=== PATIENT | male | born 1980 | race Caucasian/White ===

== ENCOUNTER 2024-06-07 08:28 | Emergency (ER) | payer OTHER, MEDICAID, SELFPAY ==
[2024-06-07 08:29] VITALS: BMI 26.4
--- NOTE | 2024-06-07 08:35 | XR_ITS ---
Examination: PA lateral chest 2 views TECHNIQUE: Upright PA lateral chest 2 views Exam date and time: June 07, 2024 0902 hours Comparison April 18, 2021 INDICATIONS: Coughing beginning one week ago. FINDINGS: Mild hyperexpansion Mild bibasilar bronchitis Normal heart size The osseous structures are intact IMPRESSION: Mild bibasilar bronchitis pattern
[2024-06-07 08:46] VITALS: BP 129/89; PULSE 98; RESP 18; TEMP 36.8; O2SAT 98
--- NOTE | 2024-06-07 09:29 | EDNOTE_ITS ---
Upper Respiratory Inf. RME/HPI General Chief Complaint: Flu Like Symptoms Stated Complaint: FEVER, COUGH X 3DAYS Time Seen by Provider: 06/07/24 08:29 Arrival date/time: 06/07/24 08:28 43-year-old male with medical history significant for seizure disorder presents to the emergency department complaints of fever, cough, congestion ongoing for the last 3 days. Limitations: no limitations Related Data Home Medications ?Medication ?Instructions ?Recorded ?Confirmed albuterol 90 mcg/actuation aerosol 90 mcg inhalation Q6H 09/23/23 03/16/24 inhaler aspirin 81 mg tablet 81 mg PO QDAY 09/23/23 03/16/24 atorvastatin 20 mg tablet 20 mg PO QDAY 09/23/23 03/16/24 baclofen 20 mg tablet 20 mg PO BID 09/23/23 03/16/24 celecoxib 100 mg capsule 100 mg PO BID 09/23/23 03/16/24 escitalopram oxalate 10 mg tablet 10 mg PO QDAY 09/23/23 03/16/24 fluticasone propionate 50 1 spray intranasal BID 09/23/23 03/16/24 mcg/actuation nasal spray,suspension gabapentin 600 mg tablet 600 mg PO BID 09/23/23 03/16/24 hydrocodone 10 mg-acetaminophen 1 tab PO Q6H PRN Pain 09/23/23 03/16/24 325 mg tablet hydroxyzine HCl 50 mg tablet 50 mg PO DAILY 09/23/23 03/16/24 levetiracetam 1,000 mg tablet 1,000 mg PO TID 09/23/23 03/16/24 loratadine 10 mg tablet 10 mg PO QDAY 09/23/23 03/16/24 melatonin 1 mg tablet 1 mg PO TID 09/23/23 03/16/24 pantoprazole 40 mg tablet,delayed 40 mg PO QDAY 09/23/23 03/16/24 release pentoxifylline 400 mg 400 mg PO BID 09/23/23 03/16/24 tablet,extended release trazodone 150 mg tablet 150 mg PO QDAY 09/23/23 03/16/24 Previous Rx's ?Medication ?Instructions ?Recorded ondansetron 4 mg disintegrating 4 mg PO Q8H PRN nausea and 08/19/23 tablet vomiting #10 tabs azithromycin 500 mg tablet See Rx Instructions PO .COMPLEX #6 06/07/24 tabs benzonatate 100 mg capsule 100 mg PO TID #14 caps 06/07/24 ibuprofen 600 mg tablet 600 mg PO Q6H #30 tabs 06/07/24 Allergies Allergy/AdvReac Type Severity Reaction Status Date / Time bee venom protein (honey bee) Allergy Verified 06/07/24 08:31 Review of Systems Review of Systems Systems Reviewed: All systems reviewed, normal except as documented Constitutional Constitutional: Reports system reviewed and no additional complaints, except as documented, Denies fever(s) and Denies headache(s) Eyes Eyes: Reports system reviewed and no additional complaints, except as documented and Denies blurry vision ENT Ears, Nose, Mouth, and Throat: Reports system reviewed and no additional complaints, except as documented, Denies headache(s), Denies nasal congestion and Denies nasal discharge Cardiovascular Cardiovascular: Reports system reviewed and no additional complaints, except as documented, Denies chest pain and Denies dyspnea Respiratory Respiratory: Reports system reviewed and no additional complaints, except as documented, Reports chest congestion, Reports cough and Denies dyspnea Gastrointestinal Gastrointestinal: Reports system reviewed and no additional complaints, except as documented and Denies abdominal pain Integumentary/Breasts Skin/Breast: Reports system reviewed and no additional complaints, except as documented and Denies rash Neurologic Neurologic: Reports system reviewed and no additional complaints, except as documented, Reports as per HPI and Denies headache(s) Past Medical History Past Medical History NEUROLOGIC: Positive Neurological Disorders (missing chromosome), Cerebrovascular Accident, Seizures and Epilepsy; Negative Transient Ischemic Attacks (TIA), Dementia, Alzheimer's Disease, Parkinson's Disease, Brain Tumor, Meningitis, Multiple Sclerosis, Cerebral Palsy, Amyotrophic Lateral Sclerosis (ALS/Courtney Gehrig's), Guillain-[place] Syndrome, Spina Bifida, Paralysis, Peripheral Neuropathy, Kitchen's Palsy, Subdural Hematoma, Migraine, Head Trauma, Spinal Cord Injury or Traumatic Brain Injury CARDIAC: Positive Cardiac Disorders (bradycardia), Atrial Fibrillation (unknown.) and Hypertension; Negative Myocardial Infarction, Cardiac Arrhythmia, Angina, Heart Murmur, Coronary Artery Disease, Atherosclerotic Heart Disease, Peripheral Vascular Disease, Hypercholesterolemia, Aneurysm, Congestive Heart Failure, Congenital Heart Disease, Valvular Heart Disease, Rheumatic Fever, Cardiomyopathy, Edema, Pericarditis, Cellulitis, Deep Vein Thrombosis, Hypotension or Varicose Veins RESPIRATORY: Positive Asthma and Bronchitis; Negative Chronic Obstructive Pulmonary Disease (COPD), Emphysema, Pneumonia, Pulmonary Fibrosis, Cystic Fibrosis, Tuberculosis, Pulmonary Embolism, Pulmonary Edema or Sleep Apnea GASTROINTESTINAL: Positive Gastrointestinal Disorders and Gastroesophageal Re flux Disease; Negative Hepatitis, Cirrhosis, Pancreatitis, Celiac Disease, Gall Bladder Disease, Gastrointestinal Bleed, Esophageal Varices, Garcia's Esophagus, Colitis, Ulcerative Colitis, Diverticulitis, Diverticulosis, Ulcer, Colorectal Cancer, Irritable Bowel, Crohn's Disease, Obstructive Bowel, Hiatal Hernia, Hemorrhoids or Obesity GENITOURINARY: Negative Genitourinary Disorders, Renal Disease, Kidney Stones, Polycystic Kidney Disease, Neurogenic Bladder, Inguinal Hernia, Dialysis, Prostate Cancer or Benign Prostatic Hyperplasia REPRODUCTIVE: Negative Testicular Cancer MUSCULOSKELETAL: Negative Musculoskeletal Disorders, Muscular Dystrophy, Myasthenia Gravis, Marfan's Syndrome, Bone Cancer, Arthritis, Rheumatoid Arthritis, Osteoporosis, Degenerative Disk Disease, Gout, Scoliosis, Carpal Tunnel Syndrome, Fibromyalgia, Fractures, Degenerative Joint Disease, Osteomyelitis or Poliovirus ENT: Positive Ear Infection; Negative Cataracts, Glaucoma, Blind, Retinal Detachment, Macular Degeneration, Deafness, Head Trauma or Eye Prosthesis ENDOCRINE: Negative Endocrine Disorders, Diabetes Mellitus Type 1, Diabetes Mellitus Type 2, Hypoglycemia, Marydel's Syndrome, [place]'s Disease, Hy perthyroidism, Hypothyroidism, Parathyroid Disease, Pituitary Disease, Syndrome of Inappropriate Antidiuretic Hormone (SIADH), Adrenal Disease or Graves' Disease HEMATOLOGIC: Negative Blood Disorders, Anemia, Leukemia, Hemophilia, Thalassemia, Sickle Cell Disease or Clotting Problems PSYCHO/SOCIAL: Positive Depression, Anxiety and Behavior Problems; Negative Psychiatric Problems, Schizophrenia, Recreational Drug Use, Bipolar Disorder, Self-Mutilation, Attention Deficit Disorder, Attention Deficit Hyperactivity Disorder, Depression, Post Traumatic Stress Disorder or Eating Disorder OTHER HISTORY: Negative Hospitalization, Autoimmune Disease, Down Syndrome, Autism, Developmental Delay (per caregiver.), Shingles, Falls, Blood Transfusions, Blood Transfusion Reaction, Anesthesia Reactions, Organ Transplant, Chemotherapy, Radiation Therapy, Hyperbaric Therapy, MRSA, VRSA, Vancomycin-Resistant Enterococci, Human Immunodeficiency Virus (HIV), Chicken Pox, Measles, Mumps, Rubella (Citizen [place] Measles), Pertussis, Clostridium Difficile, Cancer, Colorectal Cancer, Lung Cancer, Prostate Cancer or Testicular Cancer Family History FAMILY HISTORY: Negative Family Cardiac Disorders (caregiver does not know family history.) Surgical History SURGICAL: Negative Cardiac Surgery, Open Heart Surgery, Coronary Artery Bypass Graft, Valve Replacement, Vascular Surgery, Coronary Stent, Cardiac Catheterization, Pacemaker, Angiogram, Auto Implanted Cardiovert Defib, Carotid Endarterectomy, Endocrine Surgery, Thyroidectomy, Ear Surgery, Tympanostomy Tube, Eye Surgery, Nose Surgery, Oral Surgery, Tonsillectomy, Adenoidectomy, Cochlear Implant, Corneal Transplant, Throat Surgery, Abdominal Surgery, Tracheostomy, Gastric Bypass Surgery, Gastrostomy, Bowel Surgery, Nephrectomy, Transurethral Resection, Joint Replacement, Amputation, Open Reduction Internal Fixation, Arthroscopy, Neurologic Surgery, Brain Shunt, Vasectomy or Organ Transplant Social History SMOKING STATUS: Never smoker SUBSTANCE USE: former substance user (meth use 25 years ago) and marijuana ( uses when he has seizures ) ED Exam General Limitations: Present no limitations General appearance: Present alert and in no apparent distress Head Head exam: Present atraumatic Eye Eye exam: Present normal appearance, PERRL and EOMI ENT ENT exam: Present normal exam, normal oropharynx and mucous membranes moist Neck Neck exam: Present normal inspection, full ROM and trachea midline Chest Chest inspection: Present normal inspection and symmetric chest wall rise Respiratory Respiratory exam: Present normal lung sounds bilaterally; Absent respiratory distress, wheezes, stridor, accessory muscle use or prolonged expiratory phase Cardiovascular Cardiovascular exam: Present regular rate, normal rhythm and normal heart sounds; Absent bradycardia or tachycardia Abdominal Exam Abdominal exam: Present soft and normal bowel sounds; Absent distention, tenderness, guarding, rebound or rigidity Extremities Exam Extremities exam: Present normal inspection and full ROM Back Exam Back exam: Present normal inspection and full ROM Neurological Exam Neurological exam: Present alert, oriented X3 and CN II-XII intact Psychiatric Psychiatric exam: Present normal affect and normal mood Skin Skin exam: Present warm, dry, intact and normal color Course Quality Measures none Orders Category Date Time Status Bedside COVID-19 Antigen Test NOW Care 06/07/24 08:35 Active Bedside Influenza A&B Antigen Test NOW Care 06/07/24 08:35 Active XR chest 2V Stat Exams 06/07/24 08:35 Completed Vital Signs Vital signs: Vital Signs Temperature 98.2 F 06/07/24 08:46 Pulse Rate 98 06/07/24 08:46 Respiratory Rate 18 06/07/24 08:46 Blood Pressure 129/89 H 06/07/24 08:46 Pulse Oximetry (%) 98 06/07/24 08:46 Oxygen Delivery Method Room Air 06/07/24 08:46 O2 saturation 98% room air within normal limits Upper Respiratory Infection MDM Narrative MDM Narrative:: 43-year-old male with medical history significant for seizure disorder presents to the emergency department complaints of fever, cough, congestion ongoing for the last 3 days. On exam patient well-appearing patient does not appear ill or toxic patient does not appear in any acute distress Patient hemodynamically stable patient afebrile Patient checked for flu and COVID both which are negative Chest x-ray obtained consistent with bronchitis pattern Patient will treat with course of antibiotics and cough medicine Patient discharged home in no distress to follow-up with primary care doctor in the next 24 to 48 hours and for any worsening symptoms to return to the ER immediately Patient data External records reviewed:: [facility] previous records Clinical information provided by:: patient Social determinants that could affect healthcare access:: none Patient has the following chronic illnesses:: None How is presenting disease/condition affected by chronic disease/condition?: no chronic disease Evaluation data The following diagnostics were reviewed and interpreted by me:: lab results and radiology exam(s) Lab and/or radiology exams considered but not ordered:: Labs and radiology obtained Interpretation Summary: Reviewed by me Medications / Prescriptions Medications or Prescriptions considered but not ordered:: Given Medication administrations:: Given Consultations Consultation(s) initiated? (list below): No Diagnosis Upper Respiratory Differential Diagnosis: upper respiratory infection, otitis media, sinusitis and viral infection Most likely diagnosis given after review of the tests above:: URI Admission Indicated Admission indicated?: not indicated Admission Request Was there a request for admission?: No Disposition Plan Disposition Plan: Discharge Discharge Attestation Discharge Attestation: The patient and all family members were given an opportunity to ask questions and understood the discharge instructions. Discharge instructions specifically effects, indications for sooner follow up or return to the emergency department, and the expected course of current diagnosis. Patient condition: Stable Discharge Plan Plan Patient Disposition: HOME (Self Care) Disposition Comment: Stable Prescriptions/Referrals Prescriptions/Med Rec: New benzonatate 100 mg capsule 100 mg PO TID Qty: 14 0RF ibuprofen 600 mg tablet 600 mg PO Q6H Qty: 30 0RF azithromycin 500 mg tablet See Rx Instructions .ROUTE .COMPLEX Qty: 6 0RF Rx Instructions: take 500 mg today (day 1), then 250 mg for 4 days (days 2-5) No Action ondansetron 4 mg tablet,disintegrating 4 mg PO Q8H PRN (Reason: nausea and vomiting) Qty: 10 0RF gabapentin 600 mg Tablet 600 mg PO BID atorvastatin 20 mg Tablet 20 mg PO QDAY hydroxyzine HCl 50 mg Tablet 50 mg PO DAILY hydrocodone-acetaminophen 10-325 mg Tablet 1 tab PO Q6H PRN (Reason: Pain) pentoxifylline 400 mg Tablet Extended Release 400 mg PO BID Hold Instructions: Resume on 09/25/23. Hold until 09/24 Rx Instructions: must administer with a meal/food baclofen 20 mg Tablet 20 mg PO BID pantoprazole 40 mg Tablet,Delayed Release (Dr/Ec) 40 mg PO QDAY trazodone 150 mg Tablet 150 mg PO QDAY aspirin 81 mg Tablet 81 mg PO QDAY Hold Instructions: Resume on 09/25/23. Hold uuntil 09/24 albuterol 90 mcg/actuation Aerosol 90 mcg INHALATION Q6H Rx Instructions: 2 pufffs every 6 hours celecoxib 100 mg Capsule 100 mg PO BID fluticasone propionate 50 mcg/actuation [place],Suspension 1 spray INTRANASAL BID Rx Instructions: administer into each nostril loratadine 10 mg Tablet 10 mg PO QDAY escitalopram oxalate 10 mg Tablet 10 mg PO QDAY melatonin 1 mg Tablet 1 mg PO TID levetiracetam 1,000 mg Tablet 1,000 mg PO TID Referrals: Dave Mcneil MD [Primary Care Provider] - In 1 week Problem List Clinical Impression: Bronchitis Patient/Caregiver Discharge Instructions Education Materials: ED Upper Resp Infec Abx Tx Additional Instructions: Please follow up with your primary care doctor in the next 24-48hrs for any worsening symptoms return here immediately Print Language: Ni[place] Stand Alone Forms: Maddy Award Info., Work/School Release, Patient Portal Info Letter PA/REGISTERED RADIOGRAPHER Supervising Physician PA/REGISTERED RADIOGRAPHER Supervising Physician: Dr. Alejo
== END 2024-06-07 10:44 | disposition home or self-care (01) ==
PROVIDERS: Emergency Provider Emergency Medicine; PCP Family Medicine
DX: J40 Bronchitis, not specified as acute or chronic (principal)
CPT/HCPCS: 71046; 87400; 87811; 99283

== ENCOUNTER 2024-06-22 07:48 | Outpatient (AMB) | payer OTHER, MEDICAID, SELFPAY ==
[2024-06-22 08:04] VITALS: BP 148/81; PULSE 83; RESP 18; TEMP 36.4; O2SAT 97; BMI 25.5
--- NOTE | 2024-06-22 08:04 | ORTHONT_ITS ---
Vital signs 06/22/24 08:04 Height 1.91 m Height Method Stated Weight 93.157 kg Weight Measurement Method Standing Scale BMI 25.5 BP 148/81 H Blood Pressure Source Automatic Cuff Blood Pressure Location Left Upper Arm Position Sitting Respiration 18 Pulse 83 Pulse Source Monitor Temp 97.6 F Temp Source Temporal Artery Scan Pulse Oximetry (%) 97 Oxygen Delivery Method Room Air Med/Allergies Allergies & Medications Allergies bee venom protein (honey bee) Allergy (Verified 06/22/24 08:05) Medication Reconciliation ondansetron 4 mg disintegrating tablet 4 mg PO Q8H PRN nausea and vomiting #10 tabs 08/19/23 [Rx Confirmed 06/22/24] albuterol 90 mcg/actuation aerosol inhaler 90 mcg inhalation Q6H 09/23/23 [History Confirmed 06/22/24] aspirin 81 mg tablet 81 mg PO QDAY 09/23/23 [History Confirmed 06/22/24] atorvastatin 20 mg tablet 20 mg PO QDAY 09/23/23 [History Confirmed 06/22/24] baclofen 20 mg tablet 20 mg PO BID 09/23/23 [History Confirmed 06/22/24] celecoxib 100 mg capsule 100 mg PO BID 09/23/23 [History Confirmed 06/22/24] escitalopram oxalate 10 mg tablet 10 mg PO QDAY 09/23/23 [History Confirmed 06/22/24] fluticasone propionate 50 mcg/actuation nasal spray,suspension 1 spray intranasal BID 09/23/23 [History Confirmed 06/22/24] gabapentin 600 mg tablet 600 mg PO BID 09/23/23 [History Confirmed 06/22/24] hydrocodone 10 mg-acetaminophen 325 mg tablet 1 tab PO Q6H PRN Pain 09/23/23 [History Confirmed 06/22/24] hydroxyzine HCl 50 mg tablet 50 mg PO DAILY 09/23/23 [History Confirmed 06/22/24] levetiracetam 1,000 mg tablet 1,000 mg PO TID 09/23/23 [History Confirmed 1 ] loratadine 10 mg tablet 10 mg PO QDAY 09/23/23 [History Confirmed 06/22/24] melatonin 1 mg tablet 1 mg PO TID 09/23/23 [History Confirmed 06/22/24] pantoprazole 40 mg tablet,delayed release 40 mg PO QDAY 09/23/23 [History Confirmed 06/22/24] pentoxifylline 400 mg tablet,extended release 400 mg PO BID 09/23/23 [History Confirmed 06/22/24] trazodone 150 mg tablet 150 mg PO QDAY 09/23/23 [History Confirmed 06/22/24] azithromycin 500 mg tablet See Rx Instructions PO .COMPLEX #6 tabs 06/07/24 [Rx Confirmed 06/22/24] benzonatate 100 mg capsule 100 mg PO TID #14 caps 06/07/24 [Rx Confirmed 1 ] ibuprofen 600 mg tablet 600 mg PO Q6H #30 tabs 06/07/24 [Rx Confirmed 06/22/24] Exam Exam Patient is in no acute distress and is cooperative with the examination today. Breathing is nonlabored. In no respiratory distress. Bilateral extremities were evaluated and demonstrates sensation intact to light touch. Palpable pedal pulses are present. No significant edema is present. Bilateral hips were examined. The patient has no pain with log roll of the hips. Internal rotation to 30 degrees and external rotation to 30 degrees is painless. Negative FADIR. The left knee was examined. The left knee is in varus alignment. Range of motion from 0-115 degrees. Knee is stable to varus and valgus as well as AP translation with <5mm. Patient has a negative McMurrays. There is no pain with patellofemoral compression and no crepitus noted. The knee is tender to palpation medially. The right knee was also examined. The right knee is in varus alignment. Range of motion from 0-120 degrees. Knee is stable to varus and valgus as well as AP translation with <5mm. Patient has a negative McMurrays. There is no pain with patellofemoral compression and no crepitus noted. The knee is tender to palpation medially. Assessment and Plan Problem List (1) Arthritis of both knees: Status: Acute (2) Bilateral knee pain: Status: Acute Plan 43-year-old male with bilateral knee osteoarthritis moderate severity. We discussed nonoperative treatment options. He did well with cortisone injections would like a new one today. He would like both knees done Recommend knee cortisone injections as patient would like to proceed with conservative treatment at this time. The risks and benefits of the procedure were reviewed with the patient and patient gave verbal consent to continue with the procedure. Procedure: performed by Dr. Linares Using sterile technique the Bilateral knees were thoroughly prepped with alcohol, and approximately 1 cc of Kenalog 40 mg/mL and 4 cc of 1% lidocaine was injected into each knee without resistance into the medial tibial femoral joint space. The patient tolerated the procedure. Office Procedures GNS Level of Care Nursing/Assessment Patient Status: Established Patient Nursing Assessment/Reassesment: Medication Reconciliation, Update PMH in EMR and Vital Signs Coordination of Care: Complex Care and Chronic Disease 1-5, Education Complex Pt/Fam, Consent,records obtained, informed consent, 1 Ins Authorization, Results/Orders obtained and Staff clarify orders Established Patient Charge Established Patient Point Assignment: 110 Established Patient Point Charge: EP Level 3 (80-115) Surgical Proc/IM SQ injection Major Surgical Procedure: Yes (BILATERAL KNEE INJECTION) Medication Given Medication Given Medication Given: Yes Documented Dose Given: 8 Route: Infiitration Medication Given Medication Given Medication Given: Yes Documented Dose Given: 2 Route: Infiitration Office Meds Xylocaine 10 mg/mL (1 %) injection solution Performing Provider: Ryland Linares MD Performing Location: [facility] Administered by: Ryland Linares MD on 06/22/24 08:26 Dose Route Admin Location Dispensed Lot Number Expiration Date [facility] Exploration Manager 40 mL Infiltration 40 mL [id number] 01/19/27 76311-999-39 [facility] triamcinolone acetonide 40 mg/mL suspension for injection Performing Provider: Ryland Linares MD Performing Location: [facility] Administered by: Ryland Linares MD on 06/22/24 08:26 Dose Route Admin Location Dispensed Lot Number Expiration Date [facility] Exploration Manager 80 mg Infiltration 2 mL [id number] 11/19/25 6512-9173-86 [employer]EV[employer] PARENTER[employer] MA Intake Visit Data Collection New Patient or Established: Established Patient (seen at [facility] within 3 years) Reason for Visit:: 3 MONTH bilateral KNEE INJ F/U Seen by Clinical Staff ONLY (RN/MA): No Price Lister Required: No PCP or OBGYN visit in last 3 months: Yes Hx Now: No Do You Feel Safe at Home: Yes Authorities Contacted: N/A Questionairres Past Medical History Past Medical History Have you ever been diagnosed with any of the following: Neurological Problems Cerebrovascular Accident (CVA): Yes Transient Ischemic Attacks (TIA): No Dementia: No Alzheimer's Disease: No Parkinson's Disease: No Brain Tumor: No Meningitis: No Seizures: Yes Epilepsy: Yes Multiple Sclerosis: No Cerebral Palsy: No Amyotrophic Lateral Sclerosis (ALS/Courtney Gehrig's): No Guillain-Orange Syndrome: No Spina Bifida: No Paralysis: No Peripheral Neuropathy: No Kitchen's Palsy: No Subdural Hematoma: No Migraine: No Head Trauma: No Spinal Cord Injury: No Traumatic Brain Injury: No Cardiology Problems Myocardial Infarction: No Cardiac Arrhythmia: No Atrial Fibrillation: Yes (unknown.) Angina: No Heart Murmur: No Coronary Artery Disease: No Atherosclerotic Heart Disease: No Peripheral Vascular Disease: No Hypercholesterolemia: No Aneurysm: No Congestive Heart Failure: No Congenital Heart Disease: No Valvular Heart Disease: No Rheumatic Fever: No Cardiomyopathy: No Edema: No Pericarditis: No Cellulitis: No Deep Vein Thrombosis: No Hypertension: Yes Hypotension: No Varicose Veins: No Respiratory Problems Chronic Obstructive Pulmonary Disease (COPD): No Asthma: Yes Bronchitis: Yes Emphysema: No Pneumonia: No Pulmonary Fibrosis: No Tuberculosis: No Pulmonary Embolism: No Pulmonary Edema: No Sleep Apnea: No Stomache/Intestinal Problems Hepatitis: No Cirrhosis: No Pancreatitis: No Celiac Disease: No Gall Bladder Disease: No Gastrointestinal Bleed: No Esophageal Varices: No Garcia's Esophagus: No Colitis: No Ulcerative Colitis: No Diverticulitis: No Diverticulosis: No Ulcer: No Colorectal Cancer: No Irritable Bowel: No Crohn's Disease: No Obstructive Bowel: No Hiatal Hernia: No Hemorrhoids: No Gastroesophageal Reflux Disease: Yes Obesity: No Genital/Urinary Problems Renal Disease: No Kidney Stones: No Polycystic Kidney Disease: No Neurogenic Bladder: No Inguinal Hernia: No Dialysis: No Prostate Cancer: No Benign Prostatic Hyperplasia: No Reproductive Problems Testicular Cancer: No Musculoskeletal Problems Muscular Dystrophy: No Myasthenia Gravis: No Marfan's Syndrome: No Bone Cancer: No Arthritis: No Rheumatoid Arthritis: No Osteoporosis: No Degenerative Disk Disease: No Gout: No Scoliosis: No Carpal Tunnel Syndrome: No Fibromyalgia: No Fractures: No Degenerative Joint Disease: No Osteomyelitis: No Poliovirus: No Head,Eye,Nose,Throat Problems Cataracts: No Glaucoma: No Blind: No Retinal Detachment: No Macular Degeneration: No Chronic Ear Infections: Yes Deafness: No Eye Prosthesis: No Endocrine Problems Diabetes Mellitus Type 1: No Diabetes Mellitus Type 2: No Hypoglycemia: No [place]'s Syndrome: No Juan's Disease: No Hyperthyroidism: No Hypothyroidism: No Parathyroid Disease: No Pituitary Disease: No Syndrome of Inappropriate Antidiuretic Hormone: No Adrenal Disease: No Graves' Disease: No Blood Problems Anemia: No Leukemia: No Hemophilia: No Thalassemia: No Sickle Cell Disease: No Clotting Problems: No Psychologic Problems Schizophrenia: No Recreational Drug Use: No Bipolar Disorder: No Depression: Yes Anxiety: Yes Behavior Problems: Yes Self-Mutilation: No Attention Deficit Disorder: No Attention Deficit Hyperactivity Disorder: No Depression: No Post Traumatic Stress Disorder: No Eating Disorder: No Other Problems Hospitalization: No Down Syndrome: No Autism: No Developmental Delay: No (per caregiver.) Shingles: No Falls: No Blood Transfusions: No Blood Transfusion Reaction: No Anesthesia Reactions: No Organ Transplant: No Chemotherapy: No Radiation Therapy: No Hyperbaric Therapy: No MRSA: No VRSA: No Vancomycin-Resistant Enterococci: No Human Immunodeficiency Virus (HIV): No Chicken Pox: No Measles: No Mumps: No Rubella (Dutch Measles): No Pertussis: No Clostridium Difficile: No Cancer: No Lung Cancer: No Surgical History Carotid Endarterectomy: No Coronary Artery Bypass Graft: No Valve Replacement: No Pacemaker: No Thyroidectomy: No Subjective Visit Visit for: follow up visit, knee and injections Immunization / Flu Flu Vaccine in the Last 12 Months: No Flu Vaccine Exclusion Criteria: No Exclusion Criteria History of Present Illness Chief complaint: bilateral knee pain Rufino is a pleasant 42-year-old male with bilateral osteoarthritis versus rheumatoid arthritis. 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 He reports continued bilateral knee pain. He got cortisone injections 3 months ago and lasted for 3 months. He would like repeat injections today. Pain Pain level (0-10): 8 Pain duration: ALL DAY Pain location: inside (medial) Pain quality: sharp and aching Pain timing: night and increases with activity Associated signs & symptoms: weakness Ambulatory data Ambulatory device: none Treatments Improvement with previous injections: No Improvement with PT: No Improvement with NSAIDS: no Review of Systems Review of Systems: All systems negative unless otherwise noted in HPI.
== END 2024-06-22 08:19 | disposition home or self-care (01) ==
LOC: HODSRG 07:48
PROVIDERS: Supervising Provider Orthopaedic Surgery Adult Reconstructive Orthopaedic Surgery; Visit Provider Orthopaedic Surgery Adult Reconstructive Orthopaedic Surgery
DX: M17.0 Bilateral primary osteoarthritis of knee (principal); M25.561 Pain in right knee; M25.562 Pain in left knee; I10 Essential (primary) hypertension; K21.9 Gastro-esophageal reflux disease without esophagitis; Z86.73 Personal history of transient ischemic attack (TIA), and cerebral infarction without residual deficits
CPT/HCPCS: 20610; 99213; J3301; J3490; G0463

== ENCOUNTER 2024-09-28 11:14 | Emergency (ER) | payer OTHER, MEDICAID, SELFPAY ==
[2024-09-28 11:15] VITALS: BMI 27.0
--- NOTE | 2024-09-28 11:45 | XR_ITS ---
EXAMINATION: Ankle, left 3 views . Technique: Ankle AP, oblique, lateral 3 views Date and time of exam: September 28, 2024 1115 hrs. Indications: Patient fell one week TO THE ANKLE, ANKLE PAIN. Findings: No ankle fracture or dislocation No opaque foreign body Impression: No fracture or dislocation
--- NOTE | 2024-09-28 11:45 | EDNOTE_ITS ---
<Statement entered by Francine Mason MD - 09/28/24 16:04> As co-signing physician, I was present and available for consult prn. I concur with the plan and care as documented by the midlevel provider. Lower Extremity Injury RME/HPI General Chief Complaint: Fall Stated Complaint: GLF 4 DAYS AGO; L ANKLE & L KNEE PAIN Time Seen by Provider: 09/28/24 11:35 Arrival date/time: 09/28/24 11:14 44-year-old male presents with concerns for left knee pain left ankle and foot pain after twisting injury 4 days ago Limitations: no limitations Related Data Home Medications ?Medication ?Instructions ?Recorded ?Confirmed albuterol 90 mcg/actuation aerosol 90 mcg inhalation Q 6H 09/23/23 06/22/24 inhaler aspirin 81 mg tablet 81 mg PO QDAY 09/23/2306/22 Held on 09/23/23. Instructions: Resume on 09/25/23. Hold uuntil 09/24 atorvastatin 20 mg tablet 20 mg PO QDAY 09/23/2306/22 baclofen 20 mg tablet 20 mg PO BID 09/23/23 celecoxib 100 mg capsule 100 mg PO BID 09/23/2306/22 escitalopram oxalate 10 mg tablet 10 mg PO QDAY 06/22/24 fluticasone propionate 50 1 spray intranasal BID 09/2206/22/24 mcg/actuation nasal spray,suspension gabapentin 600 mg tablet 600 mg PO BID 09/23/2306/22 hydrocodone 10 mg-acetaminophen 1 tab PO Q6H PRN Pain 09/23/23 06/22/24 325 mg tablet hydroxyzine HCl 50 mg tablet 50 mg PO DAILY 09/23/23 1 levetiracetam 1,000 mg tablet 1,000 mg PO TID 09/23/23 06/22/24 loratadine 10 mg tablet 10 mg PO QDAY 09/23/2306/22 melatonin 1 mg tablet 1 mg PO TID 09/23/23 4 pantoprazole 40 mg tablet,delayed 40 mg PO QDAY 06/22/24 release pentoxifylline 400 mg 400 mg PO BID 09/23/2306/22 tablet,extended release Held on 09/23/23. Instructions: Resume on 09/25/23. Hold until 09/24 trazodone 150 mg tablet 150 mg PO QDAY 09/23/2305/25 Previous Rx's ?Medication ?Instructions ?Recorded ondansetron 4 mg disintegrating 4 mg PO Q8H PRN nausea and 08/19/23 tablet vomiting #10 tabs azithromycin 500 mg tablet See Rx Instructions PO .COM PLEX #6 06/07/24 tabs benzonatate 100 mg capsule 100 mg PO TID #14 caps 05/23 12/14 ibuprofen 600 mg tablet 600 mg PO Q6H #30 tabs 06/07 Allergies Allergy/AdvReac Type Severity Reaction Status Date / Time bee venom protein (honey bee) Allergy Severe Anaphylaxis Verified 09/28/24 11:19 venom-wasp Allergy Severe Anaphylaxis Verified 09/28/24 11:19 Review of Systems Review of Systems Systems Reviewed: All systems reviewed, normal except as documented Constitutional Constitutional: Reports system reviewed and no additional complaints, except as documented, Denies fever(s) and Denies headache(s) Eyes Eyes: Reports system reviewed and no additional complaints, except as documented and Denies blurry vision ENT Ears, Nose, Mouth, and Throat: Reports system reviewed and no additional complaints, except as documented, Denies headache(s), Denies nasal congestion and Denies nasal discharge Cardiovascular Cardiovascular: Reports system reviewed and no additional complaints, except as documented, Denies chest pain and Denies dyspnea Respiratory Respiratory: Reports system reviewed and no additional complaints, except as documented, Denies chest congestion, Denies cough and Denies dyspnea Gastrointestinal Gastrointestinal: Reports system reviewed and no additional complaints, except as documented and Denies abdominal pain Musculoskeletal Musculoskeletal: Reports system reviewed and no additional complaints, except as documented, Reports arthralgias (Pain left foot ankle and knee), Denies deformity and Reports stiffness Integumentary/Breasts Skin/Breast: Reports system reviewed and no additional complaints, except as documented and Denies rash Neurologic Neurologic: Reports system reviewed and no additional complaints, except as documented, Reports as per HPI and Denies headache(s) Past Medical History Past Medical History NEUROLOGIC: Positive Neurological Disorders (missing chromosome), Cerebrovascular Accident, Seizures and Epilepsy; Negative Transient Ischemic Attacks (TIA), Dementia, Alzheimer's Disease, Parkinson's Disease, Brain Tumor, Meningitis, Multiple Sclerosis, Cerebral Palsy, Amyotrophic Lateral Sclerosis (ALS/Courtney Gehrig's), Guillain-[place] Syndrome, Spina Bifida, Paralysis, Peripheral Neuropathy, Kitchen's Palsy, Subdural Hematoma, Migraine, Head Trauma, Spinal Cord Injury or Traumatic Brain Injury CARDIAC: Positive Cardiac Disorders (bradycardia), Atrial Fibrillation and Hypertension; Negative Myocardial Infarction, Cardiac Arrhythmia, Angina, Heart Murmur, Coronary Artery Disease, Atherosclerotic Heart Disease, Peripheral Vascular Disease, Hypercholesterolemia, Aneurysm, Congestive Heart Failure, Congenital Heart Disease, Valvular Heart Disease, Rheumatic Fever, Cardiomyopathy, Edema, Pericarditis, Cellulitis, Deep Vein Thrombosis, Hypotension or Varicose Veins RESPIRATORY: Positive Asthma and Bronchitis; Negative Chronic Obstructive Pulmonary Disease (COPD), Emphysema, Pneumonia, Pulmonary Fibrosis, Cystic Fibrosis, Tuberculosis, Pulmonary Embolism, Pulmonary Edema or Sleep Apnea GASTROINTESTINAL: Positive Gastrointestinal Disorders and Gastroesophageal Reflux Disease; Negative Hepatitis, Cirrhosis, Pancreatitis, Celiac Disease, Gall Bladder Disease, Gastrointestinal Bleed, Esophageal Varices, Garcia's Esophagus, Colitis, Ulcerative Colitis, Diverticulitis, Diverticulosis, Ulcer, Colorectal Cancer, Irritable Bowel, Crohn's Disease, Obstructive Bowel, Hiatal Hernia, Hemorrhoids or Obesity GENITOURINARY: Negative Genitourinary Disorders, Renal Disease, Kidney Stones, Polycystic Kidney Disease, Neurogenic Bladder, Inguinal Hernia, Dialysis, Prostate Cancer or Benign Prostatic Hyperplasia REPRODUCTIVE: Negative Testicular Cancer MUSCULOSKELETAL: Negative Musculoskeletal Disorders, Muscular Dystrophy, Myasthenia Gravis, Marfan's Syndrome, Bone Cancer, Arthritis, Rheumatoid Arthritis, Osteoporosis, Degenerative Disk Disease, Gout, Scoliosis, Carpal Tunnel Syndrome, Fibromyalgia, Fractures, Degenerative Joint Disease, Osteomyel itis or Poliovirus ENT: Positive Ear Infection; Negative Cataracts, Glaucoma, Blind, Retinal Detachment, Macular Degeneration, Deafness, Head Trauma or Eye Prosthesis ENDOCRINE: Negative Endocrine Disorders, Diabetes Mellitus Type 1, Diabetes Mellitus Type 2, Hypoglycemia, Waller's Syndrome, Debary's Disease, Hyperthyroidism, Hypothyroidism, Parathyroid Disease, Pituitary Disease, Syndrome of Inappropriate Antidiuretic Hormone (SIADH), Adrenal Disease or Graves' Disease HEMATOLOGIC: Negative Blood Disorders, Anemia, Leukemia, Hemophilia, Thalassemia, Sickle Cell Disease or Clotting Problems PSYCHO/SOCIAL: Positive Depression, Anxiety and Behavior Problems; Negative Psychiatric Problems, Schizophrenia, Recreational Drug Use, Bipolar Disorder, Self-Mutilation, Attention Deficit Disorder, Attention Deficit Hyperactivity Disorder, Depression, Post Traumatic Stress Disorder or Eating Disorder OTHER HISTORY: Negative Hospitalization, Autoimmune Disease, Down Syndrome, Autism, Developmental Delay, Shingles, Falls, Blood Transfusions, Blood Transfusion Reaction, Anesthesia Reactions, Organ Transplant, Chemotherapy, Radiation Therapy, Hyperbaric Therapy, MRSA, VRSA, Vancomycin-Resistant Enterococci, Human Immunodeficiency Virus (HIV), Chicken Pox, Measles, Mumps, Rubella (Sami Measles), Pertussis, Clostridium Difficile, Cancer, Colorectal Cancer, Lung Cancer, Prostate Cancer or Testicular Cancer Family History FAMILY HISTORY: Negative Family Cardiac Disorders (caregiver does not know family history.) Surgical History SURGICAL: Negative Cardiac Surgery, Open Heart Surgery, Coronary Artery Bypass Graft, Valve Replacement, Vascular Surgery, Coronary Stent, Cardiac Catheterization, Pacemaker, Angiogram, Auto Implanted Cardiovert Defib, Carotid Endarterectomy, Endocrine Surgery, Thyroidectomy, Ear Surgery, Tympanostomy Tube, Eye Surgery, Nose Surgery, Oral Surgery, Tonsillectomy, Adenoidectomy, Cochlear Implant, Corneal Transplant, Throat Surgery, Abdominal Surgery, Tracheostomy, Gastric Bypass Surgery, Gastrostomy, Bowel Surgery, Nephrectomy, Transurethral Resection, Joint Replacement, Amputation, Open Reduction Internal Fixation, Arthroscopy, Neurologic Surgery, Brain Shunt, Vasectomy or Organ Transplant Social History SMOKING STATUS: Never smoker SUBSTANCE USE: former substance user (meth use 25 years ago) and marijuana ( uses when he has seizures ) ED Exam General Limitations: Present no limitations General appearance: Present alert and in no apparent distress Head Head exam: Present atraumatic, normocephalic and normal inspection Eye Eye exam: Present normal appearance, PERRL and EOMI; Absent conjunctival injection ENT ENT exam: Present normal exam, normal oropharynx and mucous membranes moist Neck Neck exam: Present normal inspection, full ROM and trachea midline Chest Chest inspection: Present normal inspection and symmetric chest wall rise Respiratory Respiratory exam: Present normal lung sounds bilaterally Cardiovascular Cardiovascular exam: Present regular rate, normal rhythm and normal heart sounds Abdominal Exam Abdominal exam: Present soft and normal bowel sounds Extremities Exam Extremities exam: Present full ROM, tenderness and normal capillary refill; Absent pedal edema, joint swelling or calf tenderness Back Exam Back exam: Present normal inspection and full ROM Neurological Exam Neurological exam: Present alert, oriented X3 and CN II-XII intact Psychiatric Psychiatric exam: Present normal affect and normal mood Skin Skin exam: Present warm, dry, intact and normal color Course Quality Measures none Orders Category Date Time Status XR ankle comp LT min 3V Stat Exams 09/28/24 11:45 Completed XR foot comp LT min 3V Stat Exams 09/28/24 11:45 Completed XR knee LT 3V Stat Exams 09/28/24 11:45 Completed Vital Signs Vital signs: Vital Signs Temperature 98.2 F 09/28/24 11:51 Pulse Rate 82 09/28/24 11:51 Respiratory Rate 18 09/28/24 11:51 Blood Pressure 119/82 09/28/24 11:51 Pulse Oximetry (%) 97 09/28/24 11:51 Oxygen Delivery Method Room Air 09/28/24 11:51 O2 saturation 98% room air with normal limits Extremity Injury, Lower MDM Narrative MDM Narrative:: 44-year-old male presents with concerns for left knee pain left ankle and foot pain after twisting injury 4 days ago On exam patient well-appearing patient does not appear ill or toxic patient is ambulatory Imaging of the left foot knee and ankle obtained Patient discharged home in no distress to follow-up with primary care doctor in the next 24 to 48 hours and for any worsening symptoms to return to the ER immediately Patient data External records reviewed:: [facility] previous records Clinical information provided by:: patient Social determinants that could affect healthcare access:: none Patient has the following chronic illnesses:: See history How is presenting disease/condition affected by chronic disease/condition?: uneffected by Evaluation data The following diagnostics were reviewed and interpreted by me:: radiology exam(s) Lab and/or radiology exams considered but not ordered:: Radiology obtain Interpretation Summary: Reviewed by me Medications / Prescriptions Medications or Prescriptions considered but not ordered:: Given Medication administrations:: Given Consultations Consultation(s) initiated? (list below): No Diagnosis Extremity Injury, Lower Differential Diagnosis: ankle sprain and strain, acute internal derangement of knee, ankle fracture and other Most likely diagnosis given after review of the tests above:: Knee sprain Admission Indicated Admission indicated?: not indicated Admission Request Was there a request for admission?: No Disposition Plan Disposition Plan: Discharge Discharge Attestation Discharge Attestation: The patient and all family members were given an opportunity to ask questions and understood the discharge instructions. Discharge instructions specifically effects, indications for sooner follow up or return to the emergency department, and the expected course of current diagnosis. Patient condition: Stable Discharge Plan Plan Patient Disposition: HOME (Self Care) Disposition Comment: Stable Prescriptions/Referrals Prescriptions/Med Rec: No Action ondansetron 4 mg tablet,disintegrating 4 mg PO Q8H PRN (Reason: nausea and vomiting) Qty: 10 0RF benzonatate 100 mg capsule 100 mg PO TID Qty: 14 0RF ibuprofen 600 mg tablet 600 mg PO Q6H Qty: 30 0RF azithromycin 500 mg tablet See Rx Instructions .ROUTE .COMPLEX Qty: 6 0RF Rx Instructions: take 500 mg today (day 1), then 250 mg for 4 days (days 2-5) gabapentin 600 mg Tablet 600 mg PO BID atorvastatin 20 mg Tablet 20 mg PO QDAY hydroxyzine HCl 50 mg Tablet 50 mg PO DAILY hydrocodone-acetaminophen 10-325 mg Tablet 1 tab PO Q6H PRN (Reason: Pain) pentoxifylline 400 mg Tablet Extended Release 400 mg PO BID Rx Instructions: must administer with a meal/food baclofen 20 mg Tablet 20 mg PO BID pantoprazole 40 mg Tablet,Delayed Release (Dr/Ec) 40 mg PO QDAY trazodone 150 mg Tablet 150 mg PO QDAY aspirin 81 mg Tablet 81 mg PO QDAY albuterol 90 mcg/actuation Aerosol 90 mcg INHALATION Q6H Rx Instructions: 2 pufffs every 6 hours celecoxib 100 mg Capsule 100 mg PO BID fluticasone propionate 50 mcg/actuation [place],Suspension 1 spray INTRANASAL BID Rx Instructions: administer into each nostril loratadine 10 mg Tablet 10 mg PO QDAY escitalopram oxalate 10 mg Tablet 10 mg PO QDAY melatonin 1 mg Tablet 1 mg PO TID levetiracetam 1,000 mg Tablet 1,000 mg PO TID Problem List Clinical Impression: Knee pain, Foot pain, left Patient/Caregiver Discharge Instructions Education Materials: [employer] INGRAM Additional Instructions: Please follow up with your primary care doctor in the next 24-48hrs for any worsening symptoms return here immediately Print Language: Ethiopian Stand Alone Forms: Maddy Award Info., Patient Portal Info Letter PA/SATELLITE DISH INSTALLER Supervising Physician PA/JEREL Supervising Physician: Dr. MASON
--- NOTE | 2024-09-28 11:45 | XR_ITS ---
Examination: Knee, left , 3 views Technique: Knee AP, lateral, oblique 3 views Date and time of exam: September 28, 2024 11:50 AM Indications: Patient fell last week with injury to the knee, knee pain. Findings: Bipartite patella No fracture or dislocation Impression: No acute fracture
--- NOTE | 2024-09-28 11:45 | XR_ITS ---
Examination: Foot, left, 3 views Technique: AP, oblique, lateral views foot, 3 views Date and time of exam: September 28, 2024 1115 hrs. Indications: Patient fell last week with injury to foot, foot pain Findings: No acute fracture No dislocation No foreign body Impression: No acute fracture
[2024-09-28 11:51] VITALS: BP 119/82; PULSE 82; RESP 18; TEMP 36.8; O2SAT 97
== END 2024-09-28 15:05 | disposition home or self-care (01) ==
LOC: SERX 13:15
PROVIDERS: Emergency Provider Emergency Medicine; PCP Family Medicine
DX: S99.922A Unspecified injury of left foot, initial encounter (principal); S89.92XA Unspecified injury of left lower leg, initial encounter; S99.912A Unspecified injury of left ankle, initial encounter; X50.1XXA Overexertion from prolonged static or awkward postures, initial encounter
CPT/HCPCS: 73562; 73610; 73630; 99283

== ENCOUNTER → 2024-11-05 | Outpatient (CLI) | payer OTHER, MEDICAID, SELFPAY ==
--- NOTE | 2024-11-05 12:30 | XR_ITS ---
Examination: MRI lumbar spine without contrast Date and time of exam: November 05, 2024 1244 hours INDICATIONS: Lower back pain 3 months after fall Technique: Multiple MRI axial and sagittal sections lumbar spine. Sagittal T2-weighted images, TR 3500, TE 118 T1 weighted transverse sections, TR 688 T8.5, T2-weighted sagittal sections T1 weighted sagittal sections TR 621, TE 30 T2 axial sections, TR 4, 190, TE 84. Findings: Chronic osteoporotic mild compression L1 No acute lumbar fracture Advanced disc narrowing L5-S1 L5-S1 6 mm central lumbar disc bulge extending to the foraminal regions with mild bilateral L5 ganglionic compression L4-L5 2 mm central lumbar disc bulge More cephalad levels unremarkable IMPRESSION: No acute lumbar fracture L5-S1 6 mm central lumbar disc bulge extending to the foraminal regions with mild bilateral L5 ganglionic compression L4-L5 2 mm central lumbar disc bulge
== END | disposition home or self-care (01) ==
PROVIDERS: PCP Family Medicine; Referring Provider Family Medicine; Visit Provider Family Medicine
DX: M51.370 Other intervertebral disc degeneration, lumbosacral region with discogenic back pain only (principal); M51.360 Other intervertebral disc degeneration, lumbar region with discogenic back pain only; G95.20 Unspecified cord compression
CPT/HCPCS: 72148

== ENCOUNTER → 2025-03-24 | Outpatient (CLI) | payer OTHER, MEDICAID, SELFPAY ==
--- NOTE | 2025-03-24 12:00 | XR_ITS ---
Examination: MRI right hip without intravenous contrast. Date and time of exam: March 24, 2025, 1323 hours Diagnosis bilateral primary hip osteoarthritis, hip pain 2 years Technique: Multiple MRI images of the right hip have been obtained T1 weighted coronal sections, TR 500, TE 12 Proton density coronal fat saturated images, TR 3000, TE 71 T2-weighted coronal images, 5850, TE 104 T1-weighted axial images, TR 521, TE 12 T2-weighted axial fat suppressed images, TR 5730, TE 103. Findings: Adequate marrow signal right hip No bone contusion marrow edema or avascular necrosis or occult fracture No asymmetric right hip effusion Moderate narrowing right hip joint Small [id number] high-resolution images demonstrate no labral tear IMPRESSION: Moderate narrowing right hip joint
--- NOTE | 2025-03-24 12:00 | XR_ITS ---
Examination: MRI left hip without intravenous contrast. Date and time of exam: March 24, 2025, 1323 hours INDICATIONS: Diagnosis bilateral hip primary osteoarthritis, bilateral hip pain 2 years Technique: Multiple MRI images of the left hip have been obtained T1 weighted coronal sections, TR 500, TE 12 Proton density coronal fat saturated images, TR 3000, TE 71 T2-weighted coronal images, 5850, TE 104 T1-weighted axial images, TR 521, TE 12 T2-weighted axial fat suppressed images, TR 5730, TE 103. Findings: Moderate narrowing hip joint No bone contusion marrow edema avascular necrosis or microtrabecular fracture lines involving the left hip No asymmetric left hip effusion Small [id number] high-resolution images demonstrate no labral tear No free fluid in the pelvis Urinary bladder intact No prostatomegaly IMPRESSION: Moderate narrowing left hip joint
== END | disposition home or self-care (01) ==
LOC: SMRI 11:47
PROVIDERS: PCP Internal Medicine; Referring Provider Internal Medicine; Visit Provider Internal Medicine
DX: M25.852 Other specified joint disorders, left hip (principal); M25.851 Other specified joint disorders, right hip
CPT/HCPCS: 73721